=== PATIENT | female | born 1970 | race Two or more races ===

== ENCOUNTER → 2021-10-08 06:15 | Outpatient (CLI) | payer OTHER | END | disposition home or self-care (01) | LOC: LAB 10-06 09:18 | PROVIDERS: ATTEND Internal Medicine | DX: R94.6 Abnormal results of thyroid function studies (principal); B19.20 Unspecified viral hepatitis C without hepatic coma ==

== ENCOUNTER 2021-10-08 07:33 | Outpatient (CLI) | payer OTHER | END 2021-10-08 14:32 | disposition home or self-care (01) | LOC: TOM 07:33 | PROVIDERS: ATTEND Internal Medicine | DX: E04.1 Nontoxic single thyroid nodule (principal); R10.84 Generalized abdominal pain; R10.10 Upper abdominal pain, unspecified; B19.20 Unspecified viral hepatitis C without hepatic coma ==